=== PATIENT | male | born 1970 | race Caucasian/White ===

== ENCOUNTER 2025-02-13 21:11 | Emergency (ER) | payer OTHER, SELFPAY ==
[2025-02-13 21:17] VITALS: BP 206/105; PULSE 70; RESP 18; TEMP 36.9; O2SAT 98; BMI 27.1
[2025-02-13] MEDS: FLUORESCEIN 1 MG STRIP EYE-RIGHT (21:46)
[2025-02-13] MEDS: PROPARACAINE 0.5% OPHTH SOL 1 DROPS EYE-RIGHT (21:46)
--- NOTE | 2025-02-13 22:35 | ED_ITS ---
HPI - Eye Problem General Chief complaint: Eye Problems Stated complaint: Rt eye swelling , scratched Time Seen by Provider: 02/13/25 22:19 History of Present Illness HPI Narrative: 54-year-old male had sustained right eye injury 4:00 p.m. today while camping. He was opening up camping equipment when some dust and debris blew into his face, with foreign body sensation to the right eye. No other injuries. No trouble breathing, no chest pain. No pain to left eye. Last tetanus shot greater than 5 years ago. Related Data Previous Rx's ?Medication ?Instructions ?Recorded erythromycin 5 mg/gram (0.5 %) eye 1 applic EYE-LEFT T ID eye 02/13/25 ointment infection 7 days #3.5 grams Allergies Allergy/AdvReac Type Severity Reaction Status Date / Time No Known Drug Allergies Allergy Verified 02/13/25 21:17 Patient History Social History Smoking Status: Never smoker Smoking Status: Never smoker tobacco type: smokeless tobacco Exam Narrative Exam Narrative: GENERAL: Well-developed patient, in mild distress. HEAD: Atraumatic. Normocephalic. EYES: Pupils equal round and reactive. Injected right sclerae. No injection or drainage. On fluorescein examination after proparacaine numbing, has superior and upper right corneal abrasion that does not cross over the pupil, no flow of fluid from anterior chamber obvious, no foreign body visualized. See visual acuity from nursing. ENT: Nose without bleeding, purulent drainage. Throat without erythema, tonsillar hypertrophy or exudate. Airway patent. NECK: Trachea midline. Non tender CARDIOVASCULAR: Regular rate and rhythm without murmurs, gallops, or rubs. RESPIRATORY: Clear to auscultation. Breath sounds equal bilaterally. No wheezes, rales, or rhonchi. GASTROINTESTINAL: Abdomen soft, non-tender, nondistended. EXTREMITIES: No edema or joint tenderness. BACK: Nontender without deformity or crepitance. No flank tenderness. NEURO: AOx3. Motor functions grossly nonfocal. SKIN: No rash or erythema of visible areas Initial Vital Signs Initial Vital Signs: Vital Signs Temperature 98.4 F 02/13/25 21:17 Pulse Rate 70 02/13/25 21:17 Respiratory Rate 18 02/13/25 21:17 Blood Pressure 206/105 H 02/13/25 21:17 Pulse Oximetry 98 02/13/25 21:17 Oxygen Delivery Method Room Air 02/13/25 21:17 Course Orders Ordered: Discontinued Medications Hydrocodone Bitart/Acetaminophen (Hydrocodone/Acet 5/325 Prepack) 1 bottle MISC DIRECTED ONE Stop: 02/13/25 22:32 Last Admin: 02/13/25 22:53 Dose: 1 bottle Documented By: THALIA Diphtheria/Tetanus/Acell Pertussis (Tet,Diph,Pertuss(Acell),Vac/Pf 0.5 Ml Syringe) 0.5 ml IM .ONCE ONE Stop: 02/13/25 22:33 Last Admin: 02/13/25 22:52 Dose: 0.5 ml Documented By: THALIA Erythromycin (Erythromycin Ophth 1 Gm Oint) 1 applic EYE-RIGHT NOW ONE Stop: 02/13/25 22:31 Last Admin: 02/13/25 22:52 Dose: 1 applic Documented By: THALIA Fluorescein Sodium (Fluorescein 1 Mg Strip) 1 mg EYE-RIGHT NOW STA Stop: 02/13/25 21:43 Last Admin: 02/13/25 21:46 Dose: 1 mg Documented By: THALIA Proparacaine HCl (Proparacaine 0.5% Ophth Mary) 1 drops EYE-RIGHT PRN AMANDA Stop: 02/17/25 21:46 Last Admin: 02/13/25 21:46 Dose: 1 drop Documented By: THALIA Vital Signs Vital signs: Vital Signs - 8 hr 02/13/25 21:17 02/13/25 23:13 Temperature 98.4 F Pulse Rate 70 63 Respiratory Rate 18 16 Blood Pressure 206/105 H 180/90 H Pulse Oximetry 98 98 Oxygen Delivery Method Room Air Room Air MDM - Eye Problem MDM Narrative Medical decision making narrative: Right foreign body sensation opening camping equipment. Right corneal abrasion on fluorescein magnification. No aqueous flow or foreign body visualized. Tetanus updated, topical erythromycin, dispensed initial supply, prescription for further course sent to his pharmacy. Home pack pain medication, hydrocodone/acetaminophen to use if needed for pain control. Advised detailed specialty evaluation tomorrow morning, given contact information for local ophthalmology Clinic, call office tomorrow at 8:00 a.m. during regular hours. Return precautions discussed. Discharged home with family. Discharge Plan Departure Patient Disposition: Home Clinical Impression: Corneal abrasion, right Instructions: DI for Corneal Abrasion Activity Restrictions/Additional Instructions: Opening can not make equipment with foreign body sensation to the right eye, on proparacaine numbing and fluorescein examination with magnification there is upper right superior corneal abrasion present, not over the pupil at this time. No obvious visible foreign body or flow aqueous material outward. Tetanus updated. Irrigated with saline. Home pack of pain medication hydrocodone/acetaminophen provided, to use if needed. Erythromycin ophthalmic ointment applied to the right eye, home pack dispensed, further course prescr iption sent to your pharmacy. Advised eye clinic evaluation for further magnification specialist further evaluation tomorrow in clinic. Contact information given for local eye clinic providers. Call their office 8 in the morning for close follow up appointment. Recheck this/nearest emergency department for any change worsening symptoms or any concerns prior. Prescriptions: New erythromycin 5 mg/gram (0.5 %) ointment 1 applic EYE-LEFT TID 7 Days Qty: 3.5 0RF Referrals: Terrie Fernandez MD [Physician, Ophthalmology] Peyman Bean MD [Physician, Ophthalmology] Stand Alone Forms: Patient Portal/API
[2025-02-13] MEDS: TET,DIPH,PERTUSS(ACELL),VAC/PF 0.5 ML SYRINGE IM (22:52)
[2025-02-13] MEDS: ERYTHROMYCIN OPHTH 1 GM OINT 1 APPLIC EYE-RIGHT (22:52)
[2025-02-13] MEDS: HYDROCODONE/ACET 5/325 PREPACK 1 BOTTLE MISC (22:53)
[2025-02-13 23:13] VITALS: BP 180/90; PULSE 63; RESP 16; O2SAT 98
== END 2025-02-13 23:18 | disposition home or self-care (01) ==
PROVIDERS: Emergency Provider Emergency Medicine
DX: S05.01XA Injury of conjunctiva and corneal abrasion without foreign body, right eye, initial encounter (principal); W44.8XXA Other foreign body entering into or through a natural orifice, initial encounter; Z23 Encounter for immunization
CPT/HCPCS: 90471; 99283; 90715